=== PATIENT | female | born 1980 | race Caucasian/White ===

== ENCOUNTER 2016-12-18 12:23 | Day surgery (SDC) | payer OTHER ==
[2016-12-18] VITALS (10 sets, daily range): BP systolic 102–130; BP diastolic 54–80; Ht 167.6 cm; Wt 61.8 kg
[~2016-12-18] VITALS: Ht 167.6 cm; Wt 61.8 kg
[2016-12-18 13:02] LABS: BASOPHILS 0.1 % (0.0-2.0); EOSINOPHILS 0.6 % (0-7); HEMATOCRIT 38.3 % (36.0-48.0); HEMOGLOBIN 12.7 g/dL (12-16); IMMATURE GRANULOCYTES 0.2 % (0-5); MCH 30.8 pg (26.0-34.0); MCHC 33.2 g/dL (31.0-37.0); MEAN PLATELET VOLUME 10.3 fL (7.4-10.4); MONOCYTES 8.2 % (2-11); NEUTROPHILS 82.9 % (40-80); PLATELET COUNT 233 10x3/uL (130-400); RBC 4.12 10x6/uL (4.00-5.40); WBC 16.3 10x3/uL (4.8-10.8)
[2016-12-18 13:29] LABS: ANION GAP 17.8 mmol/L (8-16); BILIRUBIN - TOTAL 0.84 mg/dL (0.2-1.3); CALCIUM 9.5 mg/dL (8.5-10.1); CREATININE - SERUM 0.9 mg/dL (0.6-1.3); POTASSIUM - SERUM 3.8 mmol/L (3.5-5.1); PROTEIN - SERUM 7.6 g/dL (6.4-8.2)
--- NOTE | 2016-12-18 16:15 | NUR ---
RECEIVED TO ROOM 2214 VIA WC DIRECT ADMIT. A/O X3. C/O ABDOMINAL PAIN AT THIS TIME. ADMISSION ASSESSMENT COMPLETED. IV SITED TO RIGHT HAND AFTER 3 ATTEMPTS WITH 20G. PRE OP MEDS GIVEN.
--- NOTE | 2016-12-18 17:07 | NUR ---
OFF UNIT VIA BED TO SURGERY.
[2016-12-18 17:09] LABS: HCG URINE NEGATIVE (NEGATIVE)
--- NOTE | 2016-12-18 17:51 | NUR ---
1710: PT STATED SISTER BARRETT HANSEN WAS PRESENT. UNABLE TO REACH FAMILY EXT 2500 AND 2525.
--- NOTE | 2016-12-18 18:40 | NUR ---
RETURNED FROM SURGERY. A/O X3. NO C/O PAIN OR DISCOMFORT. DRESSING TO MID ABDOMEN DRY AND INTACT. FAMILY AT BEDSIDE.
--- NOTE | 2016-12-18 19:30 | NUR ---
Patient in bed resting, several family members at bedside. Offered medication for pain but refused at thie time. Bordergauze dressing to mid abdomen clean, dry and intact, no drainage noted. PIV infusing of NS at 100ml/hr, IV site shows no signs of infection or infiltration. VSS. Alert and oriented x 4.
--- NOTE | 2016-12-18 20:30 | NUR ---
Refused Transderm Scopolamine patch ordered. Educated on purpose of same but states she does not need it and will call staff if she changes her mind.
--- NOTE | 2016-12-19 00:25 | NUR ---
Has been up to bathroom x 2 thus far, voiding without difficulty. Continues to refuse analgesic, states pain is minimal at this time.
[2016-12-19 06:13] LABS: BASOPHILS 0.1 % (0.0-2.0); EOSINOPHILS 0 % (0-7); HEMOGLOBIN 11.2 g/dL (12-16); IMMATURE GRANULOCYTES 0.2 % (0-5); MCH 30.5 pg (26.0-34.0); MCHC 32.9 g/dL (31.0-37.0); MCV 92.6 fL (80.0-100.0); MEAN PLATELET VOLUME 10.5 fL (7.4-10.4); MONOCYTES 6.8 % (2-11); NEUTROPHILS 84.9 % (40-80); PLATELET COUNT 209 10x3/uL (130-400); RBC 3.67 10x6/uL (4.00-5.40); RDW 13.2 % (11.5-14.5)
--- NOTE | 2016-12-19 06:15 | NUR ---
Slept for long periods, dressing intact. IV infusing. No complaints voiced.
[2016-12-19 06:55] LABS: ALKALINE PHOSPHATASE 30 U/L (46-116); ALT (SGPT) 28 U/L (10-68); CALC OSMOLALITY 276 mosm/kg (275-300); CALCIUM 7.6 mg/dL (8.5-10.1); CARBON DIOXIDE 25.3 mmol/L (21.0-32.0); CHLORIDE - SERUM 103 mmol/L (98-107); CREATININE - SERUM 0.7 mg/dL (0.6-1.3); GLUCOSE 127 mg/dL (74-106); MAGNESIUM - SERUM 1.4 mg/dL (1.8-2.4); PHOSPHOROUS 2.7 mg/dL (2.5-4.9); POTASSIUM - SERUM 3.6 mmol/L (3.5-5.1); SODIUM 138 mmol/L (136-145); UREA NITROGEN 9 mg/dL (7-18); eGFR NON AFRICAN AMERICAN > 90 mL/min (90-120)
[2016-12-19 06:56] LABS: ALBUMIN 2.9 g/dL (3.4-5.0)
--- NOTE | 2016-12-19 07:30 | NUR ---
REPORT RECEIVED FROM PST MANAGER NURSE. CALL LIGHT IN REACH.
[2016-12-19 08:24] VITALS: BP 107/61
--- NOTE | 2016-12-19 08:43 | NUR ---
ASSESSMENT COMPLETED. STATES SHE HAS HAD DIARRHEA. STATES SHE HAD A REGULAR DIET LAST NIGHT SO ONE WAS ORDERED FOR THIS MORNING. DENIES NEEDS AT THIS TIME. CALL LIGHT IN REACH. SISTER IN ROOM. WILL CONTINUE WITH PLAN OF CARE.
--- NOTE | 2016-12-19 10:30 | NUR ---
PATIENT ALERT IN BED WITH FAMILY PRESENT. NO SIGNS OF DISTRESS NOTED. SIDE RAILS UP X2. BED IN LOW POSITION. CALL LIGHT IN REACH.
--- NOTE | 2016-12-19 11:31 | NUR ---
HR HAS HIGH SINCE PATIENT HAS BEEN HERE. SPOKE WITH DR. ESCOBAR. NEW ORDERS RECEIVED.
--- NOTE | 2016-12-19 13:01 | NUR ---
HR IS DOWN TO 98. WAITING ON DR. ESCOBAR TO COME AND SEE PATIENT TO SEE IF SHE CAN GET DC'D HOME.
[2016-12-19 13:07] VITALS: BP 111/67
--- NOTE | 2016-12-19 15:44 | NUR ---
SPOKE WITH SURGERY. STATES DR. ESCOBAR WILL BE OVER HERE AFTER HIS SURGERIES. WILL NOTIFY THE PATIENT AND THE SISTER.
[2016-12-19 15:50] VITALS: BP 110/65
--- NOTE | 2016-12-19 17:50 | NUR ---
DR. ESCOBAR IN ROOM TO SEE PATIENT.
--- NOTE | 2016-12-19 18:50 | NUR ---
IV DC'D WITH TIP INTACT.
--- NOTE | 2017-01-30 10:17 | OP ---
PATIENT NAME: JEANNETTE MOFFETT MEDICAL RECORD: [id number] :78 LOCATION:.[facility] ADMISSION DATE: SURGEON: GARTH ESCOBAR MD DATE OF OPERATION: 12/18/2016 PREOPERATIVE DIAGNOSIS: Acute appendicitis. POSTOPERATIVE DIAGNOSIS: Acute appendicitis. PROCEDURE: Open transumbilical appendectomy. SURGEON: Garth Escobar MD [employer] COUNSEL: None. BLOOD LOSS: Minimal. ANESTHESIA: General. COMPLICATIONS: None. The risks, possible complications and alternatives to procedure were explained to the patient. She elects to proceed. OPERATIVE COURSE: The patient was conveyed to the operating room electively on 12/18/2016. General anesthesia was induced by the anesthesia staff. A midline incision was accomplished within the umbilicus. Sharp dissection was carried down to the level of the umbilical hernia. There were some preperitoneal fat that was excised with the electrocautery. I released these connective tissues from around the umbilicus. I placed a Gaspar retractor within the umbilicus. I pulled it to the right lower quadrant. I identified the appendix. It was delivered through the umbilical hernia defect. The mesoappendix was taken down with the EnSeal device. I stapled across the tip of the cecum with an Endo-FATOU type staple utilizing a blue load. There was no bleeding. I irrigated in the right lower quadrant and aspirated. There was still no bleeding. The midline fascia was closed with interrupted 0 Vicryls. The umbilical skin was tacked down to the underlying repair with a 3-0 Vicryl suture. The umbilical skin was approximated with multiple interrupted 4-0 Vicryl Rapide sutures. A sterile dressing was applied. The patient was then extubated and conveyed to post-anesthesia care unit where she was in stable condition. TRANSINT:[id number] Voice Confirmation ID: [id number] DOCUMENT ID: [id number] CC: Amanda Pena APN OPERATIVE REPORT [id number] JEANNETTE MOFFETT ROBERT MD at 1017 CC: MARIA DEL CARMEN ZACARIAS MD [id number] DICTATION DATE: 12/18/16 1838 ENGINEER OPERATIONS AND MAINTENANCE: 12/18/169 [facility] 12/19/16 [facility] [address] [id number]
--- NOTE | 2017-01-30 10:17 | HP ---
PATIENT: JEANNETTE MOFFETT MEDICAL RECORD: [id number] ACCOUNT: [id number] LOCATION:[facility] : 78 ADMISSION DATE: 12/18/16 HISTORY AND PHYSICAL EXAMINATION CHIEF COMPLAINT: Pain. HISTORY OF PRESENT ILLNESS: The patient has been having pain for several days. She has been treated for urinary tract infection. The pain has increased. She underwent a CT scan. There is an appendicolith. There is periappendiceal inflammation. This is consistent with acute appendicitis. I am going to plan for laparoscopic appendectomy versus an open transumbilical appendectomy. The risks, possible complications and alternatives to procedure were explained to the patient. She elects to proceed. PAST MEDICAL AND SURGICAL HISTORY: Skin graft. ALLERGIES: AMOXICILLIN AND LEVAQUIN. MEDICATIONS: None. SOCIAL HISTORY: Nonsmoker. REVIEW OF SYSTEMS: Negative for coronary artery disease or hypertension. Negative for CVA or seizures. Negative for diabetes or thyroid problems. Review of systems is negative other than as is described above. PHYSICAL EXAMINATION: GENERAL: The patient does not appear acutely ill. She does not appear chronically ill. VITAL SIGNS: Reviewed. HEAD: External ears appear normal. EYES: Extraocular movements are intact. NECK: Trachea is midline. CHEST: No intercostal retractions. PULMONARY: Nonlabored, no stridor. ABDOMEN: Tenderness over McBurney's point. There is peritonitis to percussion. EXTREMITIES: No peripheral cyanosis. INTEGUMENT: No rash, no ulcerations. PSYCHIATRIC: Normal affect. NEUROLOGIC: Nonfocal, no lethargy. The patient answers questions appropriately, moves all extremities well. IMPRESSION: Acute appendicitis. PLAN: Laparoscopic appendectomy versus open transumbilical appendectomy. TRANSINT:[id number] Voice Confirmation ID: [id number] DOCUMENT ID: [id number] CC: Amanda Pena APN HISTORY AND PHYSICAL [id number] JEANNETTE MOFFETT GARTH ESCOBAR MD at 1017 CC: MARIA DEL CARMEN ZACARIAS MD [id number] DICTATION DATE: 12/18/161831 FILLER WIPER: 12/18/161915 [facility] 12/19/[address] [facility] [address] [id number]
--- NOTE | 2017-01-30 10:17 | DS ---
PATIENT:JEANNETTE MOFFETT :78 MEDICAL RECORD: [id number] DISCHARGE SUMMARY ADMISSION DATE: 12/18/16 DISCHARGE DATE: 12/19/16 PREOPERATIVE DIAGNOSIS: Acute appendicitis. PROCEDURE: Laparoscopic appendectomy. HOSPITAL COURSE: The patient was admitted with acute appendicitis. This was confirmed by CT scan. She underwent the above operative procedure. Postoperatively, her pain was controlled. She received an additional dose of antibiotics and is being dismissed home. She can return to work in 1 week if she can be at light duty for 4 weeks. Otherwise, she can return to work in 3 weeks. She is going home with [facility] for pain. She can take any nonsteroidal anti-inflammatories and use the [facility] for breakthrough if she would like. TRANSINT:[id number] Voice Confirmation ID: [id number] DOCUMENT ID: [id number] GARTH ESCOBAR MD at 1017 CC: MARIA DEL CARMEN ZACARIAS MD [id number] DICTATION DATE: 12/19/161852 ANALYTICS ARCHITECT: 12/19/161915 [facility] 12/19/16 [facility] [address] [place] [address]
== END 2016-12-19 21:02 | disposition home or self-care (01) ==
LOC: OBSVTIME → D.LAB 12:23 → EDSTATUS 14:00 → D.LAB 14:00 → D.CT 14:30 → D.MS 15:43 → OBSVTIME 15:54 → D.LAB 15:54 → D.MS 15:54 → D.LAB 12-19 21:02 → D.MS 12-19 21:02
PROVIDERS: Anesthesiology; Emergency Medicine; Surgery
DX: K35.80 Unspecified acute appendicitis (principal); K42.9 Umbilical hernia without obstruction or gangrene

== ENCOUNTER 2016-12-25 22:06 | Emergency (ER) | payer OTHER ==
[2016-12-18 16:19] VITALS: BMI 22.0
[2016-12-25 23:49] LABS: BASOPHILS 0.1 % (0.0-2.0); EOSINOPHILS 0.2 % (0-7); HEMATOCRIT 34.7 % (36.0-48.0); HEMOGLOBIN 11.2 g/dL (12-16); IMMATURE GRANULOCYTES 0.3 % (0-5); LYMPHOCYTES 5.8 % (15-50); MCHC 32.3 g/dL (31.0-37.0); MONOCYTES 7.6 % (2-11); RBC 3.73 10x6/uL (4.00-5.40); WBC 16.8 10x3/uL (4.8-10.8)
[2016-12-25 23:50] LABS: PLATELET COUNT 376 10x3/uL (130-400)
[2016-12-25 23:57] LABS: HCG SERUM NEGATIVE (NEGATIVE)
[2016-12-26 00:07] LABS: APPEARANCE CLOUDY (CLEAR); COLOR AMBER (YELLOW); GLUCOSE NEGATIVE (NEGATIVE); LEUKOCYTE ESTERASE 2+ (NEGATIVE); NITRITE NEGATIVE (NEGATIVE); PROTEIN 1+ mg/dL (NEGATIVE)
[2016-12-26 00:08] LABS: BILIRUBIN 1+ (NEGATIVE); KETONE MODERATE mg/dL (NEGATIVE)
[2016-12-26 00:12] LABS: ALBUMIN 2.8 g/dL (3.4-5.0); ALKALINE PHOSPHATASE 60 U/L (46-116); ALT (SGPT) 16 U/L (10-68); BILIRUBIN - TOTAL 0.52 mg/dL (0.2-1.3); CALC OSMOLALITY 267 mosm/kg (275-300); CALCIUM 8.8 mg/dL (8.5-10.1); CARBON DIOXIDE 24.3 mmol/L (21.0-32.0); CHLORIDE - SERUM 101 mmol/L (98-107); CREATININE - SERUM 0.8 mg/dL (0.6-1.3); GLUCOSE 141 mg/dL (74-106); POTASSIUM - SERUM 3.3 mmol/L (3.5-5.1); PROTEIN - SERUM 7.4 g/dL (6.4-8.2); SODIUM 134 mmol/L (136-145); UREA NITROGEN 8 mg/dL (7-18); eGFR NON AFRICAN AMERICAN 85 mL/min (90-120)
[2016-12-26 00:16] LABS: BACTERIA MANY /hpf (NONE SEEN); MUCUS >1+ /lpf (NONE SEEN); WHITE CELLS - URINE >50 /hpf (0-5); YEAST >1+ /hpf (NONE SEEN)
[2016-12-26 00:17] LABS: HYALINE CAST OCC /lpf (NONE SEEN)
== END 2016-12-26 01:12 | disposition home or self-care (01) ==
LOC: D.ER 22:06
PROVIDERS: Emergency Medicine
DX: N39.0 Urinary tract infection, site not specified (principal)

== ENCOUNTER → 2017-03-04 14:09 | Outpatient (CLI) | payer OTHER ==
[2016-12-18 16:19] VITALS: BMI 22.0
== END | disposition home or self-care (01) ==
LOC: D.CT 14:09
DX: R10.9 Unspecified abdominal pain (principal); R10.2 Pelvic and perineal pain

== ENCOUNTER 2019-10-02 05:38 | Day surgery (SDC) | payer OTHER ==
[2019-09-30 09:27] LABS: BASOPHILS 0.1 % (0-2); EOSINOPHILS 6.1 % (0-7); HEMATOCRIT 36.9 % (36.0-48.0); HEMOGLOBIN 11.9 g/dL (12-16); IMMATURE GRANULOCYTES 0.1 % (0-5); LYMPHOCYTES 17.4 % (15-50); MCH 31.2 pg (26.0-34.0); MCHC 32.2 g/dL (31.0-37.0); MCV 96.6 fL (80.0-100.0); MEAN PLATELET VOLUME 10.5 fL (7.4-10.4); MONOCYTES 7.1 % (2-11); NEUTROPHILS 69.2 % (40-80); RBC 3.82 10x6/uL (4.00-5.40); RDW 14.2 % (11.5-14.5); WBC 7.1 10x3/uL (4.8-10.8)
[2019-09-30 09:28] LABS: PLATELET COUNT 225 10x3/uL (130-400)
[~2019-10-02] VITALS: Ht 167.6 cm; Wt 64.4 kg
[2019-10-02] MEDS ORDERED: PRILOSEC (05:56)
[2019-10-02] MEDS ORDERED: PRENAVITE1 TAB PO (05:58)
[2019-10-02] MEDS ORDERED: FENUGREEK (05:59)
[2019-10-02 06:22] LABS: HCG URINE NEGATIVE (NEGATIVE)
[2019-10-02 06:25] VITALS: BP 122/76; BMI 22.9
[2019-10-02 06:35] VITALS: Ht 167.6 cm; Wt 64.4 kg
--- NOTE | 2019-10-02 08:29 | NUR ---
0818 - PT BP AT 72/41, PT PLACED IN TRENDELENBERG, FLUIDS OPENED.
--- NOTE | 2019-10-02 08:33 | NUR ---
PT AWAKENING, BP NOW 96/60, HOB NOW FLAT, PT RESPONSIVE.
--- NOTE | 2019-10-02 08:43 | NUR ---
PT REFUSES PAIN MEDICATION, EXPRESSES CONCERNS REGARDING MEDICATION ENTERING BREAST MILK.
--- NOTE | 2019-10-02 09:23 | NUR ---
0853-REC'D FROM RR.AWAKE AND ALERT,VSS, NO DISTRESS, REPORTS PAIN 3/10 DESCRIBES "LIKE MENSTRUAL CRAMPS", 2 BANDAIDS TO INCISIONS SITES,CDI.
--- NOTE | 2019-10-02 09:25 | NUR ---
0902-RECEIVED T.O. BY -ADMINISTER TORADOL 30MG IVP X 1 DOSE. MAY DISCHARGE WHEN CRITERIA MET.
--- NOTE | 2019-10-02 10:45 | NUR ---
1035-DISCHARGE CRITERIA MET. AMBULATED TO RESTROOM AND URINATED WITHOUT COMPLICATIONS. VSS.REMOVED IV FROM RIGHT HAND WITH CATH INTACT,DISPOSED INTO SHARPS.COVERED SITE WITH BANDAID. REVIEWED POST OPERATIVE INSTRUCTIONS WITH PT.VERBALIZED UNDERSTANDING. ESCORTED OUT VIA W/C WITH MOTHER AWAITING TO DRIVE HOME
--- NOTE | 2019-10-14 10:40 | OP ---
PATIENT NAME: JEANNETTE MOFFETT MEDICAL RECORD: [id number] :78 LOCATION:[facility] ADMISSION DATE: SURGEON: DONOVAN CARPIO MD DATE OF OPERATION: 10/02/2019 PREOPERATIVE DIAGNOSES: Multiparity, patient desires permanent sterility. POSTOPERATIVE DIAGNOSIS: Multiparity, patient desires permanent sterility. PROCEDURE: Laparoscopic tubal ligation via bipolar cautery. SURGEON: Donovan Carpio MD INTRAVENOUS FLUIDS: Per anesthesia records. SPECIMENS: None. ESTIMATED BLOOD LOSS: Minimal. FINDINGS: 1. Grossly normal uterus. 2. Grossly normal bilateral fallopian tubes. 3. Grossly normal appearing bilateral ovaries. COMPLICATIONS: None apparent. PROCEDURE IN DETAIL: The patient was taken to the operating room where general anesthesia was achieved without difficulty. The patient was then prepped and draped in normal sterile fashion in the dorsal lithotomy position in the [facility]. The patient was prepped and draped and approximately 100 mL of clear yellow urine were drained from the bladder via straight catheterization. At this point, attention was turned to the umbilicus where a 5-mm incision was made in the inferior aspect of the umbilicus. The 5-mm bladeless trocar was then used to enter the intraperitoneal space under direct visualization of the laparoscope. Following removal of the introducer, the patient was insufflated, opening pressure was found to be less than 10 mmHg. At this point, the introducer was removed and intraperitoneal placement was confirmed by laparoscope. A second 5-mm port was then placed approximately 3-4 cm above the pubic symphysis in the midline. A 5-mm skin incision was made and then the bladeless trocar was then used to enter the intraperitoneal space under direct visualization of laparoscope. Survey of the abdomen and pelvis was performed. Attention was then turned to the bilateral fallopian tubes, which were identified at their fimbriated end and an approximately 5-6 cm portion of the midsection of the tube was fully cauterized with the bipolar cautery. This was performed bilaterally with good hemostasis noted. Following a final check for hemostasis, the patient was desufflated and hemostasis remained low intra-abdominal pressures. The camera was removed. The patient was fully desufflated and trocars removed without difficulty. The skin incisions repaired with 3-0 Vicryl in an interrupted fashion. The sponge stick which has been placed into the vagina for uterine elevation was removed as well. The patient tolerated procedure well, transferred to postanesthesia recovery stable without incident. TRANSINT:[id number] Voice Confirmation ID: [id number] DOCUMENT ID: [id number] OPERATIVE REPORT [id number] JEANNETTE MOFFETT, DONOVAN Galan MD at 1040 CC: [id number] DICTATION DATE: 10/12/19 170 BIOMED TECH: 10/12/191945 [facility] 10/02/[address] [facility] [address] [place] [address]
== END 2019-10-02 10:35 | disposition home or self-care (01) ==
LOC: D.OPS 05:38 → D.PAN 08:30 → D.OPS 08:30
PROVIDERS: ATTEND Obstetrics & Gynecology
DX: Z30.2 Encounter for sterilization (principal); Z30.09 Encounter for other general counseling and advice on contraception; Z64.1 Problems related to multiparity

== ENCOUNTER → 2020-06-09 14:55 | Outpatient (CLI) | payer MEDICAID ==
[2019-10-02 06:35] VITALS: BMI 22.0
[~2020-06-09 14:55] MED LIST: FENUGREEK; PRENAVITE1 TAB PO; PRILOSEC
== END | disposition home or self-care (01) ==
LOC: D.CT 14:55
PROVIDERS: ATTEND Family Medicine
DX: R10.9 Unspecified abdominal pain (principal)